=== PATIENT | female | born 1995 | race Caucasian/White ===

== ENCOUNTER 2017-02-16 17:57 | Emergency (ER) | payer OTHER ==
[~2017-02-16] VITALS: Ht 157.5 cm; Wt 72.0 kg
[2017-02-16 17:58] VITALS: BP 129/71
[2017-02-16] MEDS ORDERED: ZANT300T PO (18:58)
[2017-02-16] MEDS ORDERED: GI COCKTAIL 50ML BTL(HYOSCYAMINE/MAALOX/LIDOCAINE VISCOUS)(1:3:1) PO ONE (19:00)
== END 2017-02-16 19:14 | disposition home or self-care (01) ==
LOC: M ED 17:57
DX: R07.89 Other chest pain (principal); K21.9 Gastro-esophageal reflux disease without esophagitis

== ENCOUNTER 2017-10-07 18:27 | Inpatient (IN) | payer OTHER ==
[2017-10-07] MEDS: LR 1,000 ML IV (19:48)
[2017-10-07] MEDS ORDERED: LR 1,000 ML IV (19:48)
[2017-10-07] MEDS: LACTATED RINGER'S 1000 ML IV (19:59)
[2017-10-07] MEDS: OXYTOCIN DRIP 30 UNITS in APPROPRIATE DILUENT 1 EA IV (19:59)
[2017-10-07] MEDS: PENICILLIN G POTASSIUM IV 5 MU in D5W MINI-BAG PLUS 100 ML IV (19:59)
[2017-10-07 20:45] LABS: HEMATOCRIT 33.9 % (36.0-47.0); HEMOGLOBIN 11.2 g/dl (12.0-15.5); MEAN CORPUSCULAR HEMOGLOBIN 28.3 pg (27.0-33.0); MEAN CORPUSCULAR VOLUME 85.6 fl (80.0-96.0); PLATELET COUNT, AUTOMATED 304 10^3/uL (150-450); RED BLOOD COUNT 3.96 10^6/uL (4.00-5.40); RED CELL DISTRIBUTION WIDTH 12.7 % (11.5-14.5); WHITE BLOOD COUNT 12.7 10^3/uL (4.0-10.0)
[2017-10-07 22:35] LABS: HBSAG L&D NEGATIVE (NEGATIVE)
[2017-10-08] MEDS: PENICILLIN G POTASSIUM IV 2.5 MU in APPROPRIATE DILUENT 1 EA IV ×6 (00:09→20:11)
[2017-10-08] MEDS: LR 1,000 ML IV ×3 (03:48→15:33)
[2017-10-08] MEDS ORDERED: FENTANYL 2MCG/ML ROPIVACAINE 0.2% IN 0.9% NACL 200ML IVBAG As Ordered (19:56)
[2017-10-08] MEDS ORDERED: ePHEDrine SULFATE 25 MG/5 ML(5MG/ML) SYRINGE As Ordered ×2 (21:06→21:07)
[2017-10-08] MEDS ORDERED: EPIDURAL/PCA KEYS XX (21:45)
[2017-10-08] MEDS ORDERED: NALOXONE INJ 0.4 MG/1 ML VIAL (J2310) IV (21:45)
[2017-10-08] MEDS ORDERED: ONDANSETRON 4MG/2ML VIAL (J2405) IV (21:45)
[2017-10-08] MEDS ORDERED: REFRIGERATOR IV KEYS XX (21:45)
[2017-10-08] MEDS ORDERED: EPIDURAL COMMENT XX (21:45)
[2017-10-08] MEDS ORDERED: LACTATED RINGER'S 1000 ML IV (21:45)
[2017-10-08] MEDS ORDERED: diphenhydrAMINE INJ 50MG/ML VIAL (J1200) IV (21:45)
[2017-10-08] MEDS ORDERED: FENTANYL/ROPIVACAINE/NACL BAG 200 ML EPIDURAL (21:45)
[2017-10-08] MEDS ORDERED: ePHEDrine SULFATE 25 MG/5 ML(5MG/ML) SYRINGE IV (21:45)
[2017-10-08] MEDS: OXYTOCIN DRIP 30 UNITS in APPROPRIATE DILUENT 1 EA IV (23:57)
[2017-10-09] MEDS ORDERED: DIBUCAINE 1% OINTMENT 30GM TOP
[2017-10-09] MEDS ORDERED: METOCLOPRAMIDE INJ 10MG/2ML VIAL (J2765) IV
[2017-10-09] MEDS ORDERED: RHOGAM 300 MCG (1500 IU) INJ (J2790) IM
[2017-10-09] MEDS ORDERED: MEASLES,MUMPS,RUBELLA VACCINE INJ (MMR-II) (90707) SC
[2017-10-09] MEDS: METHYLERGONOVINE MALEATE 0.2 MG/ML VIAL (J2210) IM (00:51)
[2017-10-09] MEDS: DOCUSATE SODIUM 100 MG CAP PO ×2 (07:49→20:49)
[2017-10-09] MEDS: PRENATAL VITAMINS CHEWABLE TABLET PO (07:50)
[2017-10-09] MEDS: METHYLERGONOVINE MALEATE 0.2 MG TAB PO (07:50)
[2017-10-09] MEDS: IBUPROFEN 800 MG TAB PO ×2 (08:50→20:02)
[2017-10-09] MEDS: ACETAMINOPHEN TAB 650MG DOSE (2X325MG) PO ×2 (09:31→20:01)
[2017-10-10] MEDS: IBUPROFEN 800 MG TAB PO (07:37)
[2017-10-10] MEDS: PRENATAL VITAMINS CHEWABLE TABLET PO (07:38)
[2017-10-10] MEDS: DOCUSATE SODIUM 100 MG CAP PO (07:38)
== END 2017-10-10 15:59 | disposition home or self-care (01) | DRG 775 ==
LOC: M LDO 18:27 → M OBS 10-09 02:23 → M LDI 18:56
PROVIDERS: Student in an Organized Health Care Education/Training Program
PROC: 10E0XZZ Delivery of Products of Conception, External Approach (ICD-10-PCS; principal; 2017-10-08)
DX: O42.12 Full-term premature rupture of membranes, onset of labor more than 24 hours following rupture (principal); Z37.0 Single live birth; Z3A.40 40 weeks gestation of pregnancy; O99.820 Streptococcus B carrier state complicating pregnancy; O48.0 Post-term pregnancy; O69.82X0 Labor and delivery complicated by other cord entanglement, without compression, not applicable or unspecified